=== PATIENT | male | born 1945 | race Hispanic/Latino ===

== ENCOUNTER 2017-04-02 08:12 | Emergency (ER) | payer OTHER ==
[~2017-04-02] VITALS: Ht 175.3 cm; Wt 105.2 kg
[~2017-04-02 08:12] MED LIST: AMLODIPINE BESY10 M1 PO; ASPIRIN81 M4 PO; ATROVENT HFA 121 PUF INH; LINZESS145 MCG PO; LOTENSIN20 M1 PO; METFORMIN ER500 MG PO; METFORMIN HCL500 M3 PO; METFORMIN HCL500 MG PO; MULTIVITAMIN1 TAB PO; NOVOLOG MIX 70/33 ML; PRAVASTATIN SOD10 M2 PO; PREDNISONE 20MG20 MG PO; PROAIR HFA8.5 GM INH; TENORETIC 50 T1 EACH PO; TRADJENTA5 M1 PO; TRADJENTA5 MG PO; TRAMADOL50 MG PO; ZITHROMAX500 MG PO
--- NOTE | 2017-04-02 08:23 | ED GENERAL ADULT ---
History of Present Illness General Chief Complaint: General Adult Stated Complaint: ?PNEUMONIA? Source: patient Exam Limitations: language barrier Vital Signs & Intake/Output Vital Signs & Intake/Output Vital Signs Date Time Temp Pulse Resp B/P B/P Pulse O2 O2 Flow FiO2 Mean Ox Delivery Rate 04/02 0945 97.9 80 19 132/66 97 Room Air 04/02 0819 97.7 88 16 122/72 96 Room Air Allergies Coded Allergies: No Known Allergies (01/28/16) Reconcile Medications Albuterol Sulfate (Proair Hfa) 90 MCG HFA.AER.AD 2 PUF INH Q4-6 PRN PRN SHORTNESS OF BREATH (Reported) Amlodipine Besylate 10 MG TABLET 1 TAB PO DAILY HEART (Reported) Aspirin (Aspirin*) 81 MG TAB.CHEW 1 TAB PO DAILY HEART HEALTH (Reported) Atenolol/Chlorthalidone (Tenoretic 50 Tablet) 50 MG-25 MG TABLET 1 TAB PO DAILY BP (Reported) Azithromycin (Zithromax) 500 MG TABLET 1 TAB PO DAILY BRONCHITIS Benazepril HCl (Lotensin) 20 MG TABLET 1 TAB PO DAILY HEART (Reported) Benzonatate (Tessalon Perle) 100 MG CAPSULE 1 CAP PO TID PRN COUGH Codeine Phosphate/Guaifenesi (Cheratussin AC Syrup) 10 MG-100 MG/5 ML LIQUID 10 ML PO QPM PRN COUGH Empagliflozin (Jardiance) 10 MG TABLET 1 TAB PO DAILY DIABETES (Reported) Insulin NPL/Insulin Lispro (Humalog Mix 75-25 Kwikpen) 100 UNIT/ML (75-25) INSULN.PEN 55 U SC DAILY DIABETES (Reported) Insulin NPL/Insulin Lispro (Humalog Mix 75-25 Kwikpen) 100 UNIT/ML (75-25) INSULN.PEN 50 U SC QPM DIABETES (Reported) Ipratropium [place] (Atrovent Hfa) 17 MCG/ACTUATION HFA.AER.AD 2 PUF INH 4 TIMES/DAY COPD (Reported) Ipratropium [place] (Atrovent HFA 12.9 GMS) 1 PUF PUF 2 PUF INH 4 TIMES/DAY COPD Linagliptin (Tradjenta) 5 MG TABLET 1 TAB PO DAILY DIABETES (Reported) Metformin HCl 500 MG TABLET 1 TAB PO BID DIABETES (Reported) Pravastatin Sodium 10 MG TABLET 1 TAB PO DAILY CHOLESTEROL (Reported) Triage Note: PT STATES HE THINKS HE HAS PNEMONIA Triage Nurses Notes Reviewed? yes Onset: Gradual Duration: constant Timing: recent history Injury Environment: home Severity: moderate Severity Numbers: 5 HPI: Patient is a 71-year-old male who is Vincentian-speaking with a past medical history of hypertension, diabetes, obstructive sleep apnea on CPAP at night, asthma, hyperlipidemia and pneumonia who presents to emergency room with concerns of symptoms of pneumonia Patient was in a private residence by himself where he has been complaining of white productive cough for the past 2 days states that symptoms feel very similar to pneumonia History is limited due to patient being primarily Vincentian-speaking only Patient is compliant with medications and his CPAP machine. Patient states that coughing is worse at night. Denies any chest pain sore throat ear pain headache back pain arm pain jaw pain nausea vomiting leg swelling shortness of breath (ANATOLIY SANTIAGO) Past History Travel History Traveled to [facility] past 21 day No Medical History Any Pertinent Medical History? see below for history Neurological: NONE EENT: NONE Cardiovascular: hypertension Respiratory: asthma Gastrointestinal: CHRONIC CONSTIPATION Hepatic: NONE Renal: NONE Musculoskeletal: NONE Psychiatric: NONE Endocrine: diabetes Blood Disorders: NONE Cancer(s): NONE ENVIRONMENTAL PROFESSIONAL/Reproductive: NONE Other Medical Hx: glaucoma, right eye blind History of MRSA: No History of VRE: No History of CDIFF: No Pneumonia Vaccine: 11/26/13 Influenza Vaccine: 08/26/14 Surgical History Surgical History: hernia repair-inguinal, hernia repair-umbilical Psychosocial History What is your primary language Vincentian Tobacco Use: Never used ETOH Use: occasional use Illicit Drug Use: denies illicit drug use Family History Hx Contributory? No (ANATOLIY SANTIAGO) Review of Systems Review of Systems Constitutional: Reports: see HPI. Denies: chills, fever. EENTM: Reports: no symptoms. Respiratory: Reports: see HPI, cough. Cardiovascular: Reports: no symptoms. GI: Reports: no symptoms. Genitourinary: Reports: no symptoms. Musculoskeletal: Reports: no symptoms. Skin: Reports: no symptoms. Neurological/Psychological: Reports: no symptoms. Hematologic/Endocrine: Reports: no symptoms. Immunologic/Allergic: Reports: no symptoms. All Other Systems: Reviewed and Negative (ANATOLIY SANTIAGO) Physical Exam Physical Exam General Appearance: no apparent distress, alert, comfortable Comments: Well-developed well-nourished person in no acute distress HEENT: Normal EENT exam, extraocular motion intact, no nystagmus. Pupils equally round and reactive to light and accommodation. Nose is atraumatic. External auditory canal and Tympanic membranes clear. Pharynx normal. No swelling or edema. Neck: Supple, no lymphadenopathy, normal range of motion without pain or tenderness Back: Nontender, no CVA tenderness. Cardiovascular: Regular rate and rhythms no murmurs rubs or gallops, normal JVP Respiratory: Chest nontender. No respiratory distress.breath sounds clear to auscultation bilaterally Abdomen: Soft, nontender nondistended, no appreciable organomegaly. Normal bowel sounds. No ascites Extremity: No edema, no calf tenderness to palpation, normal and equal pulses. Neuro: Alert oriented x3, motor sensory normal,\ Skin: No appreciable rash on exposed skin, skin is warm and dry. Psych: Mood and affect is normal, memory and judgment is normal. Core Measures ACS in differential dx? No CVA/TIA Diagnosis: No Severe Sepsis Present: No Septic Shock Present: No (MARIO LOTT,ANATOLIY) Progress Differential Diagnoses I considered the following diagnoses in my evaluation of the patient: [Upper respiratory infection, bronchitis, pneumonia, sepsis, PTX, hemothorax,] Plan of Care: Orders Procedure Date/time Status LOWER RESPIRATORY CULTURE 04/02 825 Active BLOOD CULTURE 04/02 825 Active COMPREHENSIVE METABOLIC PANEL 04/02 825 Complete CBC WITHOUT DIFFERENTIAL 04/02 825 Complete Laboratory Tests 04/02/17 0855: Anion Gap 17 H, Estimated GFR > 60, BUN/Creatinine Ratio 23.8, Glucose 261 H, Calcium 9.7, Total Bilirubin 0.9, AST 42, ALT 59, Alkaline Phosphatase 58, Total Protein 7.3, Albumin 4.1, Globulin 3.2, Albumin/Globulin Ratio 1.3, CBC w Diff NO MAN DIFF REQ, RBC 4.60 L, MCV 93.7, MCH 31.5 H, RDW 13.7, MPV 8.1, Gran % 65.8, Lymphocytes % 21.0, Monocytes % 10.3 H, Eosinophils % 1.4, Basophils % 1.5, Absolute Granulocytes 6.0, Absolute Lymphocytes 1.9, Absolute Monocytes 0.9 H, Absolute Eosinophils 0.1, Absolute Basophils 0.1, PUBS MCHC 33.7 Microbiology 04/02 915 BLOOD: Blood Culture - RECD 04/02 855 BLOOD: Blood Culture - RECD 04/02 825 LOWER RESP: Respiratory Culture - ORD 04/02 825 LOWER RESP: Gram Stain - ORD Patient currently is nontoxic appearing afebrile clear lungs to auscultation Patient had unremarkable blood work Chest x-ray unremarkable patient will be treated for concerns of bronchitis. Discussed disposition plan with patient and which she had no questions. Discussed disposition with Dr. Bain who agrees (MARIO LOTT,ANATOLIY) Diagnostic Imaging: Viewed by Me: Radiology Read. CXR Impression: no acute abnormality Initial ED EKG: none Comments: PATIENT: CAROLYNE AGUIRRE PRESENT AGE: 71 PATIENT ACCOUNT NO: [id number] : 43 LOCATION: [facility] ORDERING PHYSICIAN: ANATOLIY LOTT SERVICE DATE: 04/02/17 EXAM TYPE: RAD - XRY-CHEST XRAY, PA AND LATERAL EXAMINATION: XR CHEST 2 VIEWS CLINICAL INFORMATION: Cough; question pneumonia. COMPARISON: Prior chest radiographs dated 01/28/2016 10/19/2014. TECHNIQUE: Frontal and lateral views of the chest were obtained. FINDINGS: The heart, great vessels, pulmonary vasculature and mediastinum are normal. The lungs show no focal infiltrate, effusion or pneumothorax. There is mild elevation of the left hemidiaphragm. There is no acute osseous abnormality. There is multi-level thoracic spondylosis, with an appearance suggesting possible DISH (diffuse idiopathic skeletal hyperostosis). IMPRESSION: 1. No active cardiopulmonary disease. 2. There is chronic mild elevation of the left hemidiaphragm. 3. Skeletal findings suggest possible DISH. DICTATED BY: LINDA YEPEZ MD DATE/TIME DICTATED:04/02/17842 (MARIO LOTT,ANATOLIY) Departure Departure Disposition: HOME OR SELF CARE Condition: Stable Clinical Impression Primary Impression: Bronchitis Referrals: ORACIO MARQUEZ (PCP/Family) Additional Instructions: As discussed begin the prescription of azithromycin as directed for the full course. Begin the prescription Tessalon Perles and Robitussin with codeine for cough. Continue home medications as directed. If symptoms worsen return to emergency room. Prescriptions waiting at [facility] in [place]. Follow-up your primary care doctor in 2 days if no better Departure Forms: Customer Survey General Discharge Information Prescriptions: Current Visit Scripts Azithromycin (Zithromax) 1 TAB PO DAILY #5 TAB Benzonatate (Tessalon Perle) 1 CAP PO TID PRN COUGH #21 CAP Codeine Phosphate/Guaifenesi (Cheratussin AC Syrup) 10 ML PO QPM PRN COUGH #100 ML (ANATOLIY SANTIAGO) PA/FILLING MIXER Co-Sign Statement Statement: ED Attending supervision documentation- [x] I saw and evaluated the patient. I have also reviewed all the pertinent lab results and diagnostic results. I agree with the findings and the plan of care as documented in the PA's/FILLING MIXER's documentation. [x] I have reviewed the ED Record and agree with the PA's/FILLING MIXER's documentation. [] Additions or exceptions (if any) to the PAs/FILLING MIXER's note and plan are summarized below: [] (DEBBIE RIVERS,ABIDA) Critical Care Note Critical Care Note Critical Care Time: non-applicable (ANATOLIY SANTIAGO)
--- NOTE | 2017-04-02 08:49 | RADIOLOGY REPORT ---
EXAMINATION: XR CHEST 2 VIEWS CLINICAL INFORMATION: Cough; question pneumonia. COMPARISON: Prior chest radiographs dated 01/28/2016 10/19/2014. TECHNIQUE: Frontal and lateral views of the chest were obtained. FINDINGS: The heart, great vessels, pulmonary vasculature and mediastinum are normal. The lungs show no focal infiltrate, effusion or pneumothorax. There is mild elevation of the left hemidiaphragm. There is no acute osseous abnormality. There is multi-level thoracic spondylosis, with an appearance suggesting possible DISH (diffuse idiopathic skeletal hyperostosis). IMPRESSION: 1. No active cardiopulmonary disease. 2. There is chronic mild elevation of the left hemidiaphragm. 3. Skeletal findings suggest possible DISH.
[2017-04-02] MEDS ORDERED: JARDIANCE10 M1 PO (08:58)
[2017-04-02] MEDS ORDERED: HUMALOG MI100 UNIT/3 SC ×2 (08:59)
[2017-04-02 09:05] LABS: ABSOLUTE BASOPHIL COUNT 0.1 /CUMM (0.0-0.2); ABSOLUTE EOSINOPHIL COUNT 0.1 /CUMM (0.0-0.7); ABSOLUTE LYMPH COUNT 1.9 /CUMM (1.2-3.4); ABSOLUTE MONOCYTE COUNT 0.9 /CUMM (0.10-0.60); BASOPHIL % 1.5 % (0.0-2.0); EOSINOPHIL % 1.4 % (0-5); GRANULOCYTE % 65.8 % (42.2-75.2); HEMATOCRIT 43.1 % (42-52); MEAN CORPUSCULAR HGB 31.5 PG (27.0-31.0); MEAN CORPUSCULAR HGB CONC 33.7 G/DL (33.0-37.0); MEAN CORPUSCULAR VOLUME 93.7 FL (80.0-94.0); MEAN PLATELET VOLUME 8.1 FL (7.4-10.4); PLATELET COUNT 211 /CUMM (130-400); RBC DISTRIBUTION WIDTH 13.7 % (11.5-14.5); WHITE BLOOD CELL COUNT 9.1 /CUMM (4.8-10.8)
[2017-04-02] MEDS ORDERED: ATROVENT HFA12.9 GM INH (09:06)
[2017-04-02 09:45] VITALS: BP 132/66
[2017-04-02] MEDS ORDERED: CHERATUSSIN AC118 M1 PO (09:46)
[2017-04-02] MEDS ORDERED: TESSALON PERLE100 M1 PO (09:46)
[2017-04-02] MEDS ORDERED: ZITHROMAX500 M2 PO (09:46)
== END 2017-04-02 10:12 ==
LOC: ERH 08:12
PROVIDERS: Physician Assistant
DX: J40 Bronchitis, not specified as acute or chronic (principal)
CPT/HCPCS: 87040; 87070